=== PATIENT | male | born 1990 | race Caucasian/White ===

== ENCOUNTER 2022-07-18 20:09 | Emergency (ER) | payer OTHER, SELFPAY ==
[2022-07-18 20:23] VITALS: BP 148/99; PULSE 94; RESP 18; TEMP 36.7; O2SAT 96; BMI 38.7
--- NOTE | 2022-07-18 20:32 | ED.GENADULT ---
HPI - General Adult General Chief complaint: Ear Problems Stated complaint: ear infection Time Seen by Provider: 07/18/22 20:31 Source: patient Mode of arrival: ambulatory Limitations: no limitations History of Present Illness HPI narrative: 32 yold male presents to the ED for left ear pain. patient recent came from vacation and was swimming in the pool. patient now has left ear pain Related Data Previous Rx's Medication Instructions Recorded amoxicillin 875 mg-potassium 1 tab PO Q12H 7 days #14 tabs 07/18/22 clavulanate 125 mg tablet naproxen 500 mg tablet 500 mg PO BID PRN pain 7 days #14 07/18/22 tabs Allergies Allergy/AdvReac Type Severity Reaction Status Date / Time No Known Allergies Allergy Verified 07/18/22 20:27 Review of Systems Review of Systems: left ear pain Yes all other systems are reviewed and are negative Physical Exam ED Vital Signs: Vital Signs - 24 hr 07/18/22 20:23 Temperature 98.1 F Pulse Rate 94 Respiratory Rate 18 Blood Pressure 148/99 H Pulse Oximetry 96 Oxygen Delivery Method Room Air BMI result Body Mass Index 38.7 Const General: cooperative, healthy appearing, comfortable, no acute distress, well developed, alert, awake and Physically active Orientation/consciousness: oriented to person, oriented to place, oriented to time and patient oriented x3 HENMT Head: Yes normal to inspection, Yes No palpable skull fracture present, Yes normocephalic and Yes atraumatic Ears: hearing grossly normal bilaterally, external ears normal, TM normal on the right, EAC's normal, mastoids normal, no periauricular adenopathy and TM abnormal erythematous on the left Throat: Yes posterior oropharynx normal, Yes tonsils normal and Yes uvula midline Eyes General: appearance normal, both eyes and all related structures Neck Neck: Yes normal visual inspection, Yes full ROM, Yes no lymphadenopathy, Yes no meningeal signs, Yes trachea midline, Yes supple, No anterior neck swelling and No tender Chest Chest palpation & inspection: normal inspection of the chest and normal palpation of entire chest wall Resp Effort & Inspection: normal respiratory effort and able to speak in complete sentences Auscultation: clear to auscultation bilaterally Cardio Jugular venous distension: no JVD Heart sounds: S1 normal heart sound present and S2 normal heart sound present GI Inspection: Yes normal to inspection and No abdominal wall ecchymosis Palpation (GI): Soft to palpation, not firm, nontender, no guarding and not rigid General: No CVA tenderness and Yes no CVA tenderness Back/Spine/Pelvis Back: no CVA tenderness, No CVA tenderness and No back tenderness Skin General skin exam: no rashes or lesions noted and elasticity normal Neuro General: oriented to person, oriented to place, oriented to time, patient oriented x3, gait normal, tone normal, moves all extremities, Normal light touch and pain sensation, no meningeal signs, no focal motor deficits and CN's II-XI intact bilaterally Extrem General: Yes normal to inspection and Yes full ROM Psych Appearance: grossly normal, well kempt and not disheveled Course Course Course Narrative: RME: 32 yold male presents to the ED for left ear pain. has TM redmness Medical Decision Making Medical Decision Making MDM Narrative: left ear pain after swimming in the ear. Exam shows otits media. negative for signs of mastoiditis. Differential Diagnosis Differential Diagnoses: The differential diagnosis associated with the presentation includes (mastoiditis. Otitis media /externa, tympanic membrane perforation,) Prescription Management I considered prescription management with: Antibiotic Discharge Plan Discharge Clinical Impression: Otitis media Patient Disposition: Home, Self-Care Instructions: Ear Infection (ED) Additional Instructions: Return to the ED immediately and worsening ear pain, ear discharge, fever, swelling in front of or behind ear, dental pain, headache, or any other concerning symptoms. Prescriptions: New amoxicillin-pot clavulanate 875-125 mg tablet 1 tab PO Q12H 7 Days Qty: 14 0RF naproxen 500 mg tablet 500 mg PO BID PRN (Reason: pain) 7 Days Qty: 14 0RF Stand Alone Forms: Work/School Release Discharge Date/Time: 07/18/22 20:53 Print Language: Mongolian
== END 2022-07-18 20:53 | disposition home or self-care (01) ==
PROVIDERS: Emergency Provider Student in an Organized Health Care Education/Training Program
DX: H66.92 Otitis media, unspecified, left ear (principal)
CPT/HCPCS: 99282